=== PATIENT | female | born 1985 | race Caucasian/White ===

== ENCOUNTER 2021-05-05 08:43 | Outpatient (REF) | payer MEDICAID, SELFPAY ==
--- NOTE | ~2021-05-05 | CT_ITS ---
EXAMINATION: CT ABDOMEN AND PELVIS WITH CONTRAST CLINICAL INFORMATION: Left lower quadrant pain. COMPARISON: None TECHNIQUE: Multidetector volumetric images were obtained from the superior aspect of the liver through the pubic symphysis following administration 85 mL of Omnipaque 350 intravenous contrast. Sagittal and coronal reformatted images were obtained on the technologist's workstation. Oral Contrast: Yes. This CT examination was performed using dose optimization techniques as appropriate, variously including the following: *Automated exposure control. *Adjustment of mA and/or kV according to patient size (this includes techniques or standardized protocols for targeted exams where dose is matched to indication/reason for exam; i.e. extremities or head). *Use of iterative reconstruction technique. DLP: 558 mGy-cm FINDINGS: LUNG BASES: The visualized lung bases are unremarkable. LIVER, GALLBLADDER, AND BILIARY TREE: The liver is normal in size, shape, and attenuation. No focal hepatic lesion or biliary ductal dilatation is present. The gallbladder is unremarkable with no evidence of radiopaque gallstones, gallbladder wall thickening, or obvious pericholecystic inflammatory changes. PANCREAS: Unremarkable. SPLEEN: Unremarkable. ADRENAL GLANDS: Unremarkable. KIDNEYS AND URETERS: The kidneys are normal in size, shape, and attenuation. No hydronephrosis, hydroureter, or calculi seen. No perinephric stranding. BLADDER: Unremarkable. GASTROINTESTINAL TRACT: There is very mild diverticulosis of the colon. There is a round area of fatty infiltration anterior to the distal left or proximal sigmoid colon. Differential would include epiploic appendicitis and mild diverticulitis. This is seen on axial image 69 series 3, coronal reconstructed image 41 and sagittal reconstructed image 43. ABDOMINAL WALL: No significant hernia is appreciated. LYMPH NODES: Normal. VASCULAR: Unremarkable. PELVIC VISCERA: Unremarkable. OSSEOUS STRUCTURES: Unremarkable. CT/CT abdomen pelvis w con IMPRESSION: Mild diverticulosis of the colon. Mild inflammatory changes of the fat adjacent to the distal left or proximal sigmoid colon. Differential would include epiploic appendicitis and mild diverticulitis. Findings will be communicated by the [facility]. Fleischner guidelines were followed.
[2021-05-05] MEDS: iohexoL 350 MG/ML 100 ML INFUS..BTL IV (11:44)
[2021-05-05] MEDS: Barium Sulfate Oral (Vanilla) 450 ML ORAL.SUSP 900 ML PO (11:45)
== END 2021-05-05 08:44 | disposition home or self-care (01) ==
LOC: HO.CT 08:43
PROVIDERS: Visit Provider Emergency Medicine
DX: R10.32 Left lower quadrant pain (principal)
CPT/HCPCS: 74177; Q9967

== ENCOUNTER 2021-07-02 08:54 | Outpatient (REF) | payer MEDICAID, SELFPAY ==
--- NOTE | ~2021-07-02 | CT_ITS ---
EXAMINATION: CT ABDOMEN AND PELVIS WITHOUT CONTRAST CLINICAL INFORMATION: Disease of bowel unspecified. COMPARISON: CT abdomen/pelvis dated from 05/05/2021. TECHNIQUE: Multidetector volumetric imaging was performed from the superior aspect of the liver through the pubic symphysis. Sagittal and coronal reformatted images were obtained on the technologist's workstation. This CT examination was performed using dose optimization techniques as appropriate, variously including the following: *Automated exposure control *Adjustment of mA and/or kV according to patient size (this includes techniques or standardized protocols for targeted exams where dose is matched to indication/reason for exam; i.e. extremities or head) *Use of iterative reconstruction technique DLP: 593 mGy-cm FINDINGS: LUNG BASES: The visualized lung bases are unremarkable. LIVER, GALLBLADDER, AND BILIARY TREE: The non-contrast liver is normal in size, shape, and attenuation. No focal hepatic lesion or biliary ductal dilatation is present. The gallbladder is unremarkable with no evidence of radiopaque gallstones, gallbladder wall thickening, or obvious pericholecystic inflammatory changes. PANCREAS: Unremarkable. SPLEEN: Unremarkable. ADRENAL GLANDS: Unremarkable. KIDNEYS AND URETERS: The kidneys are normal in size, shape, and attenuation. No hydronephrosis, hydroureter, or calculi seen. No perinephric stranding. BLADDER: Unremarkable. GASTROINTESTINAL TRACT: The stomach and the small bowel are non-dilated. Normal appendix. There is redemonstration of sigmoid diverticulosis with questionable mild associated fat stranding (4:67 and 4:63). A previously described rounded structure inseparable from the wall of the sigmoid colon (3:62) measuring 0.8 cm is unchanged and likely represents a diverticulum filled with fluid or debris. No bowel obstruction. ABDOMINAL WALL: No significant hernia is appreciated. LYMPH NODES: No lymphadenopathy by size criteria. VASCULAR: Unremarkable. PELVIC VISCERA: Normal appearance of the uterus and adnexa. Trace amount of free fluid is likely physiologic. OSSEOUS STRUCTURES: No acute or aggressive-appearing osseous abnormalities. Thoracolumbar degenerative changes with redemonstration of vacuum disc phenomena at L5-S1. CT/CT abdomen pelvis wo con IMPRESSION: Sigmoid diverticulosis with very mild equivocal fat stranding. Correlate clinically for symptoms of acute diverticulitis. Otherwise, normal examination. It is important to note that the lack of intravenous contrast limits evaluation of the solid visceral organs. As well, the colon is underdistended limiting evaluation of mural abnormalities for which correlation with a colonoscopy could be obtained if indicated.
== END 2021-07-02 08:55 | disposition home or self-care (01) ==
LOC: HO.CT 08:54
PROVIDERS: Visit Provider Internal Medicine
DX: K63.9 Disease of intestine, unspecified (principal)
CPT/HCPCS: 74176

== ENCOUNTER → 2021-07-22 08:45 | Outpatient (BNVA) | payer MEDICAID, SELFPAY | PROVIDERS: PCP Internal Medicine; Referring Provider Internal Medicine; Visit Provider Nurse Practitioner Family | DX: R10.32 Left lower quadrant pain (principal); K57.92 Diverticulitis of intestine, part unspecified, without perforation or abscess without bleeding; E55.9 Vitamin D deficiency, unspecified | CPT/HCPCS: 99202 ==

== ENCOUNTER → 2021-08-24 09:28 | Outpatient (BNVA) | payer MEDICAID, SELFPAY | PROVIDERS: PCP Internal Medicine; Referring Provider Internal Medicine; Visit Provider Nurse Practitioner Family | DX: R10.32 Left lower quadrant pain (principal); K57.92 Diverticulitis of intestine, part unspecified, without perforation or abscess without bleeding | CPT/HCPCS: 99212 ==

== ENCOUNTER 2021-10-28 09:34 | Outpatient (REF) | payer MEDICAID, SELFPAY ==
[2021-10-28 10:52] LABS: C Reactive Protein 0.14 mg/dL (< or = 0.50)
[2021-10-28 11:06] LABS: TSH reflex Free T4 2.78 uIU/mL (0.32-4.0)
[2021-10-28 11:30] LABS: Folate > 20.0 ng/mL (> or = 4.0); Vitamin B12 311 pg/mL (200-900)
[2021-10-31 07:52] LABS: Transglutaminase Ab IgG <1.0 U/mL; Transglutaminase IgA <1.0 U/mL
[2021-11-04 15:42] LABS: Vitamin D 25-OH, D2 <4 ng/mL; Vitamin D 25-OH, D3 34 ng/mL; Vitamin D 25-OH, Total 34 ng/mL (30-100)
== END 2021-10-28 09:35 | disposition home or self-care (01) ==
LOC: HO.LAB 09:34
PROVIDERS: PCP Internal Medicine; Visit Provider Nurse Practitioner Family
DX: R10.11 Right upper quadrant pain (principal); R14.0 Abdominal distension (gaseous); R19.7 Diarrhea, unspecified; K58.9 Irritable bowel syndrome, unspecified; E55.9 Vitamin D deficiency, unspecified
CPT/HCPCS: 36415; 82306; 82607; 82746; 84443; 86140; 86364

== ENCOUNTER → 2021-11-18 09:16 | Outpatient (BNVA) | payer MEDICAID, SELFPAY | PROVIDERS: PCP Internal Medicine; Visit Provider Physician Assistant Surgical | DX: Z11.0 Encounter for screening for intestinal infectious diseases (principal) | CPT/HCPCS: 99211 ==

== ENCOUNTER 2021-11-18 09:37 | Outpatient (REF) | payer MEDICAID, SELFPAY ==
[2021-11-21 11:33] LABS: H Pylori Breath Test Negative (Negative)
== END 2021-11-18 09:38 | disposition home or self-care (01) ==
LOC: HO.LNP 09:37
PROVIDERS: Visit Provider Physician Assistant Surgical
DX: E66.9 Obesity, unspecified (principal)
CPT/HCPCS: 83013

== ENCOUNTER 2021-11-18 09:42 | Outpatient (REF) | payer MEDICAID, SELFPAY ==
--- NOTE | ~2021-11-18 | XR_ITS ---
EXAMINATION: XR CHEST CLINICAL INFORMATION: Obesity COMPARISON: None TECHNIQUE: 2 views of the chest were obtained. FINDINGS: No significant abnormality is noted involving the heart, lungs, mediastinum, bony thorax or soft tissues. XR/XR chest 2V IMPRESSION: Unremarkable examination.
[2021-11-18 10:07] LABS: MANUAL DIFF FLAG NO
[2021-11-18 10:36] LABS: Basophils Percent Auto 0.4 % (0-2); Eosinophils Absolute Auto 0.1 X10*3/uL (0.0-0.4); Eosinophils Percent Auto 1.1 % (0-4); Hematocrit 37.6 % (37.0-47.0); Hemoglobin 12.8 g/dl (12.0-16.0); Imm Gran Abs Auto 0.02 X10*3/uL (0.00-0.03); Imm Gran Pct Auto 0.3 % (0.0-0.4); Lymphocytes Absolute Auto 2.6 X10*3/uL (1.2-4.9); Lymphocytes Percent Auto 34.2 % (20-40); Mean Corpuscular Hemoglobin 29.4 pg (27.0-33.0); Mean Corpuscular Volume 86.4 fL (80.0-98.0); Monocytes Absolute Auto 0.5 X10*3/uL (0.1-1.2); Monocytes Percent Auto 6.2 % (2-11); Neutrophils Absolute Auto 4.4 x10*3/uL (2.0-8.3); Neutrophils Percent Auto 57.8 % (45-73); Platelet Count 392 X10*3/uL (160-400); Red Blood Count 4.35 X10*6/uL (4.20-5.50); Red Cell Distribution Width 12.5 % (11.0-16.0); White Blood Count 7.6 X10*3/uL (4.8-10.8)
[2021-11-18 10:51] LABS: Estimated Average Glucose 126 mg/dL
--- NOTE | 2021-11-18 11:03 | ECG_ITS ---
Test Reason : E66.01 Blood Pressure : / mmHG Vent. Rate : 084 BPM Atrial Rate : 084 BPM P-R Int : 160 ms QRS Dur : 088 ms QT Int : 360 ms P-R-T Axes : 015 034 021 degrees QTc Int : 425 ms Normal sinus rhythm Normal ECG No previous ECGs available Referred By: Benito Valentine Electronically Signed By:Ted Torres
[2021-11-18 11:14] LABS: Alanine Aminotransferase 17 U/L (0-31); Albumin Level 4.2 g/dL (3.5-5.0); Alkaline Phosphatase 76 U/L (39-117); Anion Gap 12 (12-20); Aspartate Amino Transferase 14 U/L (5-31); Bilirubin Total 0.4 mg/dL (0.0-1.0); Blood Urea Nitrogen 10 mg/dL (9-16); C Reactive Protein 0.15 mg/dL (< or = 0.50); Calcium 8.7 mg/dL (8.4-10.2); Carbon Dioxide 21 mmol/L (22-29); Chloride 108 mmol/L (96-108); Cholesterol 150 mg/dL; Estimated Glomerular Filt Rate > 60; Glucose Random 131 mg/dL (60-115); HDL Cholesterol 46 mg/dL; Iron 133 mcg/dL (30-160); LDL Cholesterol Calculated 68 mg/dl; Percent Iron Saturation 33 % (15-50); Potassium 4.4 mmol/L (3.3-5.1); Sodium 137 mmol/L (135-145); Total Iron Binding Capacity 401 mcg/dL (228-428); Triglycerides 183 mg/dL; Unsaturated Iron Binding 268 ug/dL
[2021-11-18 11:50] LABS: Folate 16.1 ng/mL (> or = 4.0); Vitamin B12 243 pg/mL (200-900)
[2021-11-18 11:56] LABS: Ferritin 35 ng/mL (10-122); TSH reflex Free T4 2.43 uIU/mL (0.32-4.0); Vitamin D 25-OH Total 33.8 ng/mL (>30)
[2021-11-18 14:17] LABS: Insulin 36 uU/mL (2-29)
[2021-11-19 13:47] LABS: Calcium (PTHI) 8.9 mg/dL (8.6-10.2); PTHI 92 pg/mL (16-77)
[2021-11-22 08:17] LABS: Vitamin B1 14 nmol/L (8-30)
[2021-11-23 16:26] LABS: Vitamin A 59 mcg/dL (38-98)
[2021-11-25 23:31] LABS: Zinc 72 mcg/dL (60-130)
== END 2021-11-18 09:43 | disposition home or self-care (01) ==
LOC: HO.XRAY 09:42
PROVIDERS: PCP Internal Medicine; Visit Provider Physician Assistant Surgical
DX: E66.9 Obesity, unspecified (principal)
CPT/HCPCS: 36415; 71046; 80053; 80061; 82306; 82607; 82728; 82746; 83013; 83036; 83525; 83540; 83970; 84425; 84443; 84590; 84630; 85025; 86140; 93005; 99211

== ENCOUNTER 2021-11-26 10:44 | Day surgery (SDC) | payer MEDICAID, SELFPAY ==
--- NOTE | 2021-11-25 09:27 | HO.ANESPROP2 ---
Documented by User: Radha Collado NP 11/25/21 09:30 HPI - Anesthesia Eval Consult details Narrative: 36yo F for Colonoscopy PMFSH Active Problems Active Problems: All Active Problems (Updated 11/17/21 @ 10:40 by MARISOL Beard) HTN (hypertension) (Acute) Diabetes (Acute) Obesity (BMI 30-39.9) (Acute) Past Medical History Medical History Diabetes HTN (hypertension) Obesity (BMI 30-39.9) Family History Family History Mother HTN (hypertension) Father Diverticulitis Diabetes Maternal Grandmother HTN (hypertension) Paternal Grandmother Diabetes Social History Social History Household Members: None Alcohol intake: never Patient Tobacco Use Status: Never used Tobacco Meds Allergies Allergy/AdvReac Type Severity Reaction Status Date / Time No Known Allergies Allergy Verified 08/24/21 09:29 Home Medications Medication Instructions Recorded Confirmed Last Taken Type blood sugar diagnostic (FreeStyle #10 ea 07/22/21 11/17/21 Unknown History Lite Strips) dulaglutide 0.75 mg/0.5 mL mg subcut QWEEK 07/22/21 11/17/21 Unknown History subcutaneous pen injector (Trulicity) hydroxyzine pamoate 25 mg capsule 25 mg PO BID PRN 07/22/21 11/17/21 Unknown History ibuprofen 400 mg tablet 400 mg PO Q4-6H PRN 07/22/21 11/17/21 Unknown History insulin glargine 100 unit/mL (3 28 unit subcut 07/22/21 11/17/21 Unknown History mL) subcutaneous pen (Lantus Solostar U-100 Insulin) lancets 28 gauge (FreeStyle #100 ea 07/22/21 11/17/21 Unknown History Lancets) pen needle, diabetic 31 gauge x #50 ea 07/22/21 11/17/21 Unknown History /16 (BD Ultra-Fine Mini Pen Needle) lisinopril 10 mg tablet 10 mg PO DAILY 11/17/21 11/17/21 Unknown History Exam Exam Date and Time: November 25, [id number] Pertinent Lab Results Pertinent Lab Results: Laboratory Tests 11/18/21 11/18/21 10:05 10:05 WBC 7.6 Hgb 12.8 Hct 37.6 Plt Count 392 Sodium 137 Potassium 4.4 Chloride 108 Carbon Dioxide 21 L BUN 10 Creatinine 0.72 Narrative Narrative: EKG 11/2021 Vent. Rate : 084 BPM ? ? Atrial Rate : 084 BPM ?? P-R Int : 160 ms? QRS Dur : 088 ms ? ? QT Int : 360 ms ? ? ? P-R-T Axes : 015 034 021 degrees ?? QTc Int : 425 ms ? Normal sinus rhythm Normal ECG No previous ECGs available Assessment and Plan Assessment Anesthesia Assessment: Chart Reviewed Documented by User: Ceci Carcamo MD 11/26/21 08:58 [facility] Past Medical History Medical History Diabetes HTN (hypertension) Obesity (BMI 30-39.9) Functional capacity: independent ambulation Patient : No Family History Family History Mother HTN (hypertension) Father Diverticulitis Diabetes Maternal Grandmother HTN (hypertension) Paternal Grandmother Diabetes Family history of problems with anesthesia: No Surgical History History of Problems with Anesthesia: No Social History Social History Household Members: None Alcohol intake: never Patient Tobacco Use Status: Never used Tobacco Meds Allergies Allergy/AdvReac Type Severity Reaction Status Date / Time No Known Allergies Allergy Verified 08/24/21 09:29 Home Medications Medication Instructions Recorded Confirmed Last Taken Type blood sugar diagnostic (FreeStyle #10 ea 07/22/21 11/17/21 Unknown History Lite Strips) dulaglutide 0.75 mg/0.5 mL mg subcut QWEEK 07/22/21 11/17/21 Unknown History subcutaneous pen injector (Trulicity) hydroxyzine pamoate 25 mg capsule 25 mg PO BID PRN 07/22/21 11/17/21 Unknown History ibuprofen 400 mg tablet 400 mg PO Q4-6H PRN 07/22/21 11/17/21 Unknown History insulin glargine 100 unit/mL (3 28 unit subcut 07/22/21 11/17/21 Unknown History mL) subcutaneous pen (Lantus Solostar U-100 Insulin) lancets 28 gauge (FreeStyle #100 ea 07/22/21 11/17/21 Unknown History Lancets) pen needle, diabetic 31 gauge x #50 ea 07/22/21 11/17/21 Unknown History 07/29 (BD Ultra-Fine Mini Pen Needle) lisinopril 10 mg tablet 10 mg PO DAILY 11/17/21 11/17/21 Unknown History Assessment and Plan Final Anesthetic Review Family History of Problems with Anesthesia: No History of Problems with Anesthesia: No
--- NOTE | 2021-11-26 10:36 | PC.NURSE ---
Patient arrival scheduled for 829, called x 2 when she did not appear. No answer on cell phone, left 2 messages, no response from patient
[2021-11-26 11:23] LABS: UPreg QC Valid YES; Urine Pregnancy NEGATIVE (NEGATIVE)
--- NOTE | 2021-11-26 11:25 | MHC.SHP ---
Pre-Procedural Eval Section A Date of Service: 11/26/21 Section B Chief Complaint: Diverticulitis of intestine, lower abdominal pain Relevant Family History (Specify if Yes): No Relevant Social History: None Present Medications: see Short Stay Collaborative assessment Medical History: Significant History (Diabetes HTN (hypertension) Obesity (BMI 30-39.9)) History of Previous Operations: No relevant previous surgery Allergies: Allergies Allergy/AdvReac Type Severity Reaction Status Date / Time No Known Allergies Allergy Verified 08/24/21 09:29 Review of Systems Sugical H&P ROS: Negative: Constitution, Cardiovascular, Respiratory, Neurological, Psychiatric, Hem-Onc, Allergic/Immunologic, Gastrointestinal, Genitourinary, Musculoskeletal, Integumentary, Endocrine and Eyes/Ears/Nose/Throat Exam Surgical H&P Exam: Normal: HEENT, Normal: Heart, Normal: Lungs, Normal: Extremities, Normal: Abdomen, Normal: Skin and Normal: Neurological Plan Diagnosis/Plan: Unchanged I have reviewed the history and physical and performed a pertinent physical examination on my patient. No changes have occurred unless specified.
--- NOTE | 2021-11-26 11:26 | W.PM.OPN ---
Operative Note Operative Note Date of Service: 11/26/21 Narrative: Operative Information Procedure Description: Colonoscopy Indication: hx of constipation and diverticulitis Anesthesia: MAC COLONOSCOPY Instrument: Olympus variable stiffness pediatric scope 190L Colonoscopy Monitoring: Vital signs and clinical assessment, continuous EKG monitoring, Pulse oximetry, Carbon Dioxide monitoring and blood pressure monitoring were done throughout the procedure. Colon withdrawal time was 10 minutes. Procedure: The patient was placed in the left lateral decubitis position and pre-procedure medications were administered. After a digital rectal examination of the ano-rectum, the video colonoscope was inserted into the rectum and advanced through the colon to the cecum/TI. The colonoscope was slowly withdrawn in a retrograde panoramic fashion and the colon mucosa was carefully examined including a retroflexed view of the rectum. Findings and interventions are described below. Procedure Difficulty: easy Findings: Terminal Ileum-normal, bx taken random colon bx taken Cecum:normal Ascending Colon: normal Transverse Colon -normal Descending Colon:normal Sigmoid Colon: small diverticula noted, mild to moderate Rectum: Retroflexion with small internal hemorrhoids, grade I, rectal biospies with jumbo cold forceps to r/o hirschsprungs Anorectum - normal Colon preparation: [place] Bowel Preparation Scale Right colon; 1-2 Transverse colon: 2 Left colon; 2 (0 = Unprepared colon segment with mucosa not seen due to solid stool that cannot be cleared. 1 = Portion of mucosa of the colon segment seen, but other areas of the colon segment not well seen due to staining, residual stool and/or opaque liquid. 2 = Minor amount of residual staining, small fragments of stool and/or opaque liquid, but mucosa of colon segment seen well. 3 = Entire mucosa of colon segment seen well with no residual staining, small fragments of stool or opaque liquid) Impression and Post Procedure Diagnosis: diverticulosis internal hemorrhoids Plan: High fiber diet leaflet Avoid straining at stool, epsom salts and sitz bath, anusol supps or cream Repeat Colonoscopy in 5 years due to borderline prep of right colon or earlier if clinically indicated if bx neg then recommend MR defecography to exclude pelvic floor dysfucntion or other anatomical issues causing her sx Above findings were reviewed with the patient and relevant handouts were provided if indicated.
[2021-11-26 11:39] VITALS: BMI 35.5
[2021-11-26 11:44] VITALS: BP 143/88; PULSE 102; RESP 16; TEMP 36.9; O2SAT 97
[2021-11-26 11:44] LABS: Glucose, Whole Blood 118 mg/dL (60-115)
[2021-11-26] MEDS: Lactated Ringers 1,000 ML 100 ML IVCONT (11:47)
[2021-11-26 12:42] VITALS: BP 121/71; PULSE 87; RESP 16; TEMP 36.9; O2SAT 98
[2021-11-26 12:57] VITALS: BP 134/73; PULSE 85; RESP 16; O2SAT 98
[2021-11-26 13:12] VITALS: BP 127/73; PULSE 91; RESP 18; TEMP 37.2; O2SAT 98
== END 2021-11-26 13:48 | disposition home or self-care (01) ==
PROVIDERS: Nurse Practitioner; PCP Internal Medicine; Visit Provider Internal Medicine Gastroenterology
PROC: 0DJD8ZZ Inspection of Lower Intestinal Tract, Via Natural or Artificial Opening Endoscopic (ICD-10-PCS; CPT 45378; principal; 2021-11-26 09:30)
DX: Z12.11 Encounter for screening for malignant neoplasm of colon (principal); Z87.19 Personal history of other diseases of the digestive system; K57.30 Diverticulosis of large intestine without perforation or abscess without bleeding; K64.0 First degree hemorrhoids; K59.00 Constipation, unspecified; E66.9 Obesity, unspecified; Z68.33 Body mass index [BMI] 33.0-33.9, adult; I10 Essential (primary) hypertension; E11.9 Type 2 diabetes mellitus without complications; Z79.4 Long term (current) use of insulin; Z79.899 Other long term (current) drug therapy
CPT/HCPCS: 45380; 81025; 82947; 88305; 88342

== ENCOUNTER → 2021-12-09 08:20 | Outpatient (BNVA) | payer MEDICAID, SELFPAY | PROVIDERS: PCP Internal Medicine; Visit Provider Nurse Practitioner Family | DX: K57.90 Diverticulosis of intestine, part unspecified, without perforation or abscess without bleeding (principal) | CPT/HCPCS: 99212 ==

== ENCOUNTER → 2022-08-18 10:02 | Outpatient (BNVA) | payer MEDICAID, SELFPAY | PROVIDERS: PCP Internal Medicine; Visit Provider Nurse Practitioner Family | DX: K57.90 Diverticulosis of intestine, part unspecified, without perforation or abscess without bleeding (principal); R14.0 Abdominal distension (gaseous); R10.12 Left upper quadrant pain; E66.9 Obesity, unspecified; Z68.38 Body mass index [BMI] 38.0-38.9, adult | CPT/HCPCS: 99212 ==

== ENCOUNTER 2023-08-26 08:56 | Outpatient (REF) | payer MEDICAID, SELFPAY ==
[2023-08-26 15:04] LABS: Estimated Average Glucose 134 mg/dL; Hemoglobin A1C 150.1968 umol/L; Hemoglobin A1c % 6.3 % (<6.0)
[2023-08-26 15:05] LABS: Alanine Aminotransferase 21 U/L (0-31); Albumin Level 4.3 g/dL (3.5-5.0); Alkaline Phosphatase 70 U/L (39-117); Anion Gap 12 (12-20); Aspartate Amino Transferase 15 U/L (5-31); Bilirubin Total 0.3 mg/dL (0.0-1.0); Blood Urea Nitrogen 8 mg/dL (9-16); Calcium 9.3 mg/dL (8.4-10.2); Carbon Dioxide 23 mmol/L (22-29); Chloride 109 mmol/L (96-108); Cholesterol 131 mg/dL (<200); Estimated Glomerular Filt Rate > 60; Glucose Fasting 82 mg/dL (60-99); HDL Cholesterol 44 mg/dL (>40); LDL Cholesterol Calculated 68 mg/dL (<100); Potassium 3.9 mmol/L (3.3-5.1); Sodium 140 mmol/L (135-145); Total Protein 7.3 g/dL (6.5-8.0); Triglycerides 97 mg/dL (<150)
[2023-08-26 15:36] LABS: Creatinine Urine 176.66 mg/dL; Microalbum/Creatinine Ratio Ur 3.3 ug/mg cr (<30)
== END 2023-08-26 08:57 | disposition home or self-care (01) ==
LOC: HO.CHCLDS 08:56
PROVIDERS: Visit Provider Internal Medicine
DX: E11.9 Type 2 diabetes mellitus without complications (principal); Z79.4 Long term (current) use of insulin
CPT/HCPCS: 36415; 80053; 80061; 82043; 82570; 83036

== ENCOUNTER 2023-12-05 08:17 | Emergency (ER) | payer MEDICARE, MEDICAID, SELFPAY ==
--- NOTE | ~2023-12-05 | CT_ITS ---
EXAMINATION: CT CERVICAL SPINE WITHOUT CONTRAST CLINICAL INFORMATION: Fall 5 days ago COMPARISON: None available. TECHNIQUE: Axial imaging was performed through the cervical spine. Reformatted coronal and sagittal images are provided for interpretation. This CT examination was performed using dose optimization techniques as appropriate, variously including the following: *Automated exposure control *Adjustment of mA and/or kV according to patient size (this includes techniques or standardized protocols for targeted exams where dose is matched to indication/reason for exam; i.e. extremities or head) *Use of iterative reconstruction technique DLP: 438 mGy-cm FINDINGS: The cervical spine is visualized in its entirety. There is reversal of the normal cervical lordosis. Alignment is otherwise unremarkable. Normal C1/C2 articulation. Cervical vertebral body heights are maintained. Cervical disc spaces are maintained diffusely. A few tiny osteophytes are noted within the mid to lower cervical spine. A few left side thyroid nodules are visualized, largest measuring approximately 1 cm. Visualized lung apices are well aerated. CT/CT cervical spine wo IV con IMPRESSION: 1. Minimal degenerative changes of the cervical spine. No compression deformity. 2. A few left-sided thyroid nodules are visualized, largest measuring approximately 1 cm. These may be further evaluated with dedicated thyroid ultrasound as clinically indicated. Fleischner guidelines were followed.
[2023-12-05 08:21] VITALS: BP 150/84; PULSE 93; RESP 18; TEMP 36.6; O2SAT 99; BMI 32.4
--- NOTE | 2023-12-05 08:41 | ED_ITS ---
HPI - Neck Pain/Injury General Chief Complaint: Neck Pain/Injury Stated Complaint: Neck pain Time Seen by Provider: 12/05/23 08:35 Source: patient Mode of arrival: ambulatory History of Present Illness HPI Narrative: This is a 38 years old the patient presented ambulatory to the emergency department with a chief complaint of neck pain. Pain is localized in the right lateral neck. She had an injury 5 days ago, she fell denies any head injury denies any chest wall pain denies any abdominal pain. She is on Ozempic she is wondering if he could be a side effect by she has been on this medication more than 1 year MD complaint: neck pain and neck injury Onset (ago): day(s) (5) Place: home Radiation: right lateral Severity: moderate Duration: constant Exacerbating factors: none Context: fall Associated symptoms: none Related Data Home Medications ?Medication ?Instructions ?Recorded ?Confirmed blood sugar diagnostic (JsuStyle #10 ea 07/22/21 11/17/21 Lite Strips) dulaglutide 0.75 mg/0.5 mL mg subcut QWEEK 07/22/21 11/17/21 subcutaneous pen injector (Trulicity) hydroxyzine pamoate 25 mg capsule 25 mg PO BID PRN 07/22/21 11/17/21 ibuprofen 400 mg tablet 400 mg PO Q4-6H PRN 07/22/21 11/17/21 insulin glargine 100 unit/mL (3 28 unit subcut 07/22/21 11/17/21 mL) subcutaneous pen (Lantus Solostar U-100 Insulin) lancets 28 gauge (FreeStyle #100 ea 07/22/21 11/17/21 Lancets) pen needle, diabetic 31 gauge x #50 ea 07/22/21 11/17/21 3/16 (BD Ultra-Fine Mini Pen Needle) lisinopril 10 mg tablet 10 mg PO DAILY 11/17/21 11/17/21 paroxetine HCl 30 mg tablet 30 mg PO QAM 08/18/22 Previous Rx's ?Medication ?Instructions ?Recorded polyethylene glycol 3350 17 17 g PO DAILY #510 grams 12/09/21 gram/dose oral powder (Miralax) docusate sodium 100 mg capsule 100 mg PO BEDTIME #30 caps 07/22/23 sennosides 8.6 mg tablet (Natural 8.6 mg PO BEDTIME constipation #30 07/22/23 Senna Laxative) tabs cyclobenzaprine 10 mg tablet 10 mg PO TID PRN spasm #10 tabs 12/05/23 Allergies Allergy/AdvReac Type Severity Reaction Status Date / Time No Known Allergies Allergy Verified 12/05/23 08:25 Review of Systems Constitutional: Constitutional: Reports no additional constitutional complaints ENT: Reports system reviewed and no additional complaints, except as documented Cardiovascular: Cardiovascular: Reports no additional cardiovascular complaints [facility] Past Medical History Medical History Diabetes Diverticulosis HTN (hypertension) Obesity (BMI 30-39.9) Family History Family History Mother HTN (hypertension) Father Diverticulitis Diabetes Maternal Grandmother HTN (hypertension) Paternal Grandmother Diabetes Social History Social History Household Members: None Alcohol intake: never Patient Tobacco Use Status: Never used Tobacco Advance Directives: No Advance Directives Information Provided: No Do you have a plan to hurt others: No Plan Physical Exam Vital Signs: Vital Signs: Last Vital Signs Temp 97.8 F 12/05/23 10:00 Pulse 81 12/05/23 10:00 Resp 17 12/05/23 10:00 BP 139/81 12/05/23 10:00 Pulse Ox 100 12/05/23 10:00 O2 Del Method Room Air 12/05/23 10:00 BMI result Body Mass Index 32.4 Const: General: cooperative and healthy appearing Nutritional Appearance: well nourished Orientation/consciousness: patient oriented x3 Limitations: no limitations HEENT: Head: Yes normal to inspection Ears: hearing grossly normal bilaterally General nose exam: Normal external nose present Face and sinus: Yes normal facial exam Mouth: Normal oral and palatal mucosa present Neck: Other: Tenderness in the posterolateral aspect of the knee Chest: Chest palpation & inspection: normal inspection of the chest Resp: Effort & Inspection: normal respiratory effort Auscultation: clear to auscultation bilaterally Cardio: Jugular venous distension: no JVD Rate: regular rate Rhythm: regular rhythm GI: Inspection: Yes normal to inspection Palpation (GI): Soft to palpation Skin: General skin exam: no rashes or lesions noted Lesions: no lesions Rashes: no rashes Neuro: General: patient oriented x3 Cranial nerves: Yes CN's II-XII intact bilaterally Course Reevaluation(s) Reevaluation #1: CT C-spine negative for fracture she does have thyroid nodule this was disclosed to the patient a copy of the CT was given to her she will follow-up with the primary care physician Time: 11:17 Medical Decision Making Medical Decision Making MDM Narrative: Patient presented with neck pain she fell about 5 days ago will obtain imaging Differential Diagnosis Differential Diagnoses: The differential diagnosis associated with the presentation includes Cervical spines fracture/sprain Independent Interpretation I performed an independent interpretation of an: CT Scan Interpretation: no fx Radiology Impression Discussion of test interpretation with radiology: I have reviewed the radiologist's reading. Radiologist Impression: no fx thyroid nodules Discharge Plan Discharge Clinical Impression: Neck pain Patient Disposition: Home, Self-Care Instructions: Acute Neck Pain (ED) Additional Instructions: Follow-up with your primary care physician please, CT scan showed that he you of few thyroid nodule you may need an outpatient ultrasound but talk to your primary care physician about, I gave you a copy of the CT report Prescriptions: New cyclobenzaprine 10 mg tablet 10 mg PO TID PRN (Reason: spasm) Qty: 10 0RF No Action docusate sodium 100 mg capsule 100 mg PO BEDTIME Qty: 30 3RF sennosides [Natural Senna Laxative] 8.6 mg tablet 8.6 mg PO BEDTIME Qty: 30 3RF hydroxyzine pamoate 25 mg capsule 25 mg PO BID PRN (DME) pen needle, diabetic [BD Ultra-Fine Mini Pen Needle] 31 gauge x 3/16 ne edle See Rx Instructions subcut DAILY Qty: 50 Rx Instructions: As directed Trulicity 0.75 mg/0.5 mL pen injector subcut QWEEK (DME) lancets [FreeStyle Lancets] 28 gauge misc See Rx Instructions topical TID Qty: 100 Rx Instructions: As directed (DME) FreeStyle Lite Strips Strip See Rx Instructions Not Applicable TID Qty: 10 Rx Instructions: As directed ibuprofen 400 mg tablet 400 mg PO Q4-6H PRN Lantus Solostar U-100 Insulin 100 unit/mL (3 mL) insulin pen 28 unit subcut polyethylene glycol 3350 [Miralax] 17 gram/dose powder 17 g PO DAILY Qty: 510 2RF lisinopril 10 mg tablet 10 mg PO DAILY paroxetine HCl 30 mg tablet 30 mg PO QAM Referrals: Lai Farnks MD [Primary Care Provider] - 2 days Print Language: Occitan
[2023-12-05 10:00] VITALS: BP 139/81; PULSE 81; RESP 17; TEMP 36.6; O2SAT 100
[2023-12-05 11:50] VITALS: BP 139/81; PULSE 81; RESP 17; TEMP 36.6; O2SAT 100
== END 2023-12-05 11:51 | disposition home or self-care (01) ==
PROVIDERS: Emergency Provider Emergency Medicine; PCP Internal Medicine
DX: M54.2 Cervicalgia (principal); Z79.899 Other long term (current) drug therapy
CPT/HCPCS: 72125; 99283; 99284

== ENCOUNTER 2025-02-05 09:15 | Outpatient (REF) | payer MEDICARE, MEDICAID, SELFPAY ==
--- OUTSIDE RECORDS SUMMARY | 2025-02-05 08:30 | XMS_ITS | Encounter Summary ---
Author Organization [employer] Address [address] [facility] 7[address] [place] [address] Care Team Providers Care Immigration Patrol Inspector Name Role Phone Lai Franks MD Primary Care Prov ider Reason for Referral * Imaging (Routine) - Authorized Specialty Diagnoses / Procedures Referred By Contac t Referred To Contact Radiology Diagnoses Type 2 diabetes mellitus without complication, with long-term current use of insulin ([facility]) Procedures BI Mammogram Screening Tomosynthesis Bilateral Lai Franks MD [address] [place] [address] Phone: tel: fax: [address] Phone: tel: fax: Referral ID Status Reason Start Date Expiration Date V isits Requested Visits Authorized [id number] Authorized 02/05/2025 02/05/2026 1 1 Encounter Details Date Type Department Care Team (Late st Contact Info) Description 02/05/2025 8:30 AM EDT Office Visit [facility] MED & PEDS [address] [place], [place] [phone] Lai Franks MD [address] [place] [address] Primary hypertension (Primary Dx); Type 2 diabetes mellitus without complication, with long-term current use of insulin ([facility]) Social History Tobacco Use Types Packs/Day Years Used Date Smoking Tobacco: Never Passive Smoke Exposure: Never Smokeless Tobacco: Never Alcohol Use Standard Drinks/Week Comments Yes 1 (1 standard drink = 0.6 oz pur e alcohol) Depression Answer Date Recorded Patient Health Questionnaire-9 Score 0 05/02/2024 Patient Health Questionnaire-9 Score 0 05/02/2024 Last PHQ-9: Questionnaire Data Not on file 1 07/03/2023 Housing Stability Answer Date Recorded What is your housing situation today? I have danika palacios 01/29/[address] you li ve. Do you have problems with any of the following? None of the above 01/29/2025 Food Insecurity Answer Date Recorded Within the past 12 months, y ou worried that your food would run out before you got money to buy more: Never True 01/29/2025 Within the past 12 months,th e food you bought just didn't last and you didn't have enough money to get more: Never True Transportation Answer Date Recorded In the past 12 months, has l ack of transportation kept you from medical appts, meetings, work or from getting things needed for daily living? No 01/29/2025 Utilities Answer Date Recorded In the past 12 months, has t he electric, gas, oil or water company threatened to shut off services in your home? No 01/29/2025 Depression Answer Date Recorded Patient Health Questionnaire-2 Score 0 05/02/2024 Internet Access Answer Date Recorded Internet Access Q1 Yes 01/29/2025 Internet Access Q2 Not on file 01/29/2025 Comments Unknown Sex and Gender Information Value Date Recorded Sex Assigned at Female 03/15/2022 10:18 AM EDT Legal Sex Female 10:18 AM EDT Gender Identity Female 03/15/2022 10:18 AM EDT Sexual Orientation Straight 03/15/2022 10 :18 AM EDT documented as of this encounter Last Filed Vital Signs Vital Sign Reading Time Taken Comments Blood Pressure 132/80 02/05/2025 8:55 AM EDT Pulse 88 02/05/2025 8:55 AM EDT Temperature 36.9 C (98.4 F) 02/05/2025 8:55 AM EDT Respiratory Rate 20 02/05/2025 8:55 AM EDT Oxygen Saturation - - Inhaled Oxygen Concentration - - Weight 69.7 kg (153 lb 9.6 oz) 02/05/2025 8:55 A M EDT Height 162.6 cm (5' 4 ) 02/05/2025 8:55 AM EDT Body Mass Index 26.37 02/05/2025 8:55 AM EDT documented in this encounter Progress Notes * Lai Delaney MD - 02/05/2025 8:30 AM EDT Subjective Patient ID: Veronika Lopez is a 39 y.o. female who presents for No chief complaint on file.. Hypertension This is a chronic problem. The problem is controlled. Pertinent negatives include no chest pain, headaches, palpitations or shortness of breath. Diabetes She presents for her follow-up diabetic visit. She has type 2 diabetes mellitus. Her disease coursehas been stable. Pertinent negatives for hypoglycemia include no headaches. Pertinent negatives fordiabetes include no chest pain, no foot ulcerations, no polydipsia, no polyphagia and no polyuria. Review of Systems Respiratory: Negative for shortness of breath. Cardiovascular: Negative for chest pain and palpitations. Endocrine: Negative for polydipsia, polyphagia and polyuria. Neurological: Negative for headaches. Objective Physical Exam Constitutional: Appearance: Normal appearance. Cardiovascular: Rate and Rhythm: Normal rate. Pulses: Dorsalis pedis pulses are 2+ on the right side and 2+ on the left side. Posterior tibial pulses are 2+ on the right side and 2+ on the left side. Heart sounds: No murmur heard. Abdominal: General: Abdomen is flat. Palpations: Abdomen is soft. Musculoskeletal: Right foot: Normal range of motion. No deformity, bunion, Charcot foot, foot drop or prominent metatarsal heads. Left foot: Normal range of motion. No deformity, bunion, Charcot foot, foot drop or prominent metatarsal heads. Feet: Right foot: Protective Sensation: 7 sites tested. 7 sites sensed. Skin integrity: No ulcer, blister or callus. Toenail Condition: Fungal disease present. Left foot: Protective Sensation: 7 sites tested. 7 sites sensed. Skin integrity: No ulcer, blister or callus. Toenail Condition: Fungal disease present. Neurological: General: No focal deficit present. Mental Status: She is alert and oriented to person, place, and time. Psychiatric: Mood and Affect: Mood normal. Behavior: Behavior normal. Assessment/Plan Problem List Items Addressed This Visit Type 2 diabetes mellitus without complication, with long-term current use of insulin (CMS/HCC) Controlled, will stop insulin, continue ozempic, continue low carb/no sugar diet, exercise as tolerated Relevant Orders POCT Glucose (Completed) POCT Hgb A1c (Completed) CBC auto differential Comprehensive Metabolic Panel Lipid Panel, Standard Albumin, Random Urine W/Creatinine Hepatitis C Antibody with Reflex to HCV, RNA, Quantitative, Real-Time PCR BI Mammogram Screening Tomosynthesis Bilateral Primary hypertension - Primary Controlled, keep low sodium diet and exercise as tolerated, keep blood pressure log target <130/80 documented in this encounter Miscellaneous Notes * Assessment & Plan Note - Lai Delaney MD - 02/05/2025 9:11 AM EDTAssociated Problem(s): Type 2 diabetes mellitus without complication, with long-term current use ofinsulin (CMS/HCC) Controlled, will stop insulin, continue ozempic, continue low carb/no sugar diet, exercise as tolerated * Assessment & Plan Note - Lai Delaney MD - 02/05/2025 9:11 AM EDTAssociated Problem(s): Primary hypertension Controlled, keep low sodium diet and exercise as tolerated, keep blood pressure log target <130/80 documented in this encounter Plan of Treatment Scheduled Orders Name Type Priority Associated Diagnoses Orde r Schedule CBC auto differential Lab Routine Type 2 diabetes mellitus without complication, with long-term current use of insulin (CMS/HCC) Expected: 02/05/2025 (Approximate), Expires: 02/05/2026 Comprehensive Metabolic Panel Lab Routine Type 2 diabetes mellitus without complication, with long-term current use of insulin ([facility]) Expected: 02/05/2025 (Approximate), Expires: 02/05/2026 Lipid Panel, Standard Lab Routine Type 2 diabetes mellitus without complication, with long-term current use of insulin (CMS/HCC) Expected: 02/05/2025 (Approximate), Expires: 02/05/2026 Albumin, Random Urine W/Creatinine Lab Routine Type 2 diabetes mellitus without complication, with long-term current use of insulin ([facility]) Expected: 02/05/2025 (Approximate), Expires: 02/05/2026 Hepatitis C Antibody with Reflex to HCV, RNA, Quantitative, Real-Time PCR Lab Routine Type 2 diabetes mellitus without complication, with long-term current use of insulin ([facility]) Expected: 02/05/2025, Expires: 02/05/2026 BI Mammogram Screening Tomosynthesis Bilateral Imaging Routine Type 2 diabetes mellitus without complication, with long-term current use of insulin ([facility]) Expected: 02/05/2025, Expires: 04/07/2026 documented as of this encounter Procedures Procedure Name Priority Date/Time Associated Diagnosis Comments POCT GLYCATED HEMOGLOBIN, TOTAL Routine 02/05/2025 8:57 AM EDT Type 2 diabetes mellitus without complication, with long-term current use of insulin ([facility]) POCT GLUCOSE Routine 02/05/2025 8:56 AM EDT Type 2 diabetes mellitus without complication, with long-term current use of insulin ([facility]) documented in this encounter Results * POCT Hgb A1c (02/05/2025 8:57 AM EDT) Pathologist [facility] Hemoglobin A1C 5.4 4.0 - 5.7 % QC Media Lot # [id number] Lot# Expiration Date ,566,069 Blood 02/05/2025 8:57 AM EDT Lai Delaney MD POINT OF CARE TEST ENTER/EDIT ORDERABLES Final Result * POCT Glucose (02/05/2025 8:56 AM EDT) Glucose Blood, POC 104 60 - 200 mg/dL QC Media Lot # [id number] Lot# Expiration Date Blood Capillary blood specimen / Unknown 02/05/2025 8:56 AM EDT Lai Delaney MD POINT OF CARE TEST ENTER/EDIT ORDERABLES Final Result documented in this encounter Visit Diagnoses Diagnosis Primary hypertension- Primary Unspecified essential hypertension Type 2 diabetes mellitus without complication, with long-term current use of insulin ([facility]) documented in this encounter Additional Health Concerns Assessment Noted Time PHQ-9 Depression Total Score: 0 05/02/20 24 11:14 AM EST documented as of this encounter Care Teams Immigration Patrol Inspector Relationship Specialty Start Date End Date Lai Franks MD [address] [place] [address] PCP - General Internal Medicine 10/10/19 documented as of this encounter
--- OUTSIDE RECORDS SUMMARY | 2025-02-05 10:52 | XMS_ITS | Encounter Summary ---
Author Organization [employer] Address [address] [facility] [address] [place] [address] Care Team Providers Care Research Program Assistant Name Role Phone Lai Franks MD Primary Care Prov ider Reason for Visit * Reason Onset Date Comments chart prep 02/01/2025 Encounter Details Date Type Department Care Team ([facility] st Contact Info) Description 02/01/2025 Telephone [facility] MED & PEDS [address] [place], [place] [phone] Lai Franks MD [address] [place], [place] [phone] chart prep Social History Tobacco Use Types Packs/Day Years [...] your housing situation today? I have danika suzanne 01/29/[address] you li [...] AM EDT documented as of this encounter Miscellaneous Notes * Telephone Encounter - Marly Pimentel [place] - 02/01/2025 2:45 PM EDT Chart Prep Labs: done Images: done Referrals: not applicable Vaccines due: Covid, Flu, PCV20, Tdap, and Hep B Screenings: mammogram, foot, eye Overdue care gaps: A1c, Glucose, SBIRT, and Disability screen documented in this encounter Plan of Treatment Not on file documented as of this encounter Visit Diagnoses Not on filedocumented in this encounter Additional Health Concerns Assessment Noted Time PHQ-9 Depression Total Score: 0 05/02/20 24 11:14 AM EST documented as of this encounter Care Teams Research Program Assistant Relationship Specialty Start Date End Date Lai Franks MD [address] [place], [place] [address] [address] PCP - General Internal Medicine 10/10/19 documented as of this encounter
--- OUTSIDE RECORDS SUMMARY | 2025-02-05 10:52 | XMS_ITS | Encounter Summary ---
Author Organization [employer] Address [address] [facility] [address] [place] [address] Care Team Providers Care Livestock Slaughterer Name Role Phone Lai Franks MD Primary Care Prov ider Reason for Visit * Reason Comments Med Change Request Encounter Details Date Type Department Care Team ([facility] st Contact Info) Description 12/23/2023 Refill [facility] MEDICINE [address] [place] [address] Beatriz Roman MD [address] [place] [address] Social History Tobacco Use Types Packs/Day Years Used Date Smoking Tobacco: Never Passive Smoke Exposure: Never Smokeless Tobacco: Never Alcohol Use Standard Drinks/Week Comments Yes 1 (1 standard drink = 0.6 oz pur e alcohol) Depression Answer Date Recorded Patient Health Questionnaire-9 Score 06/14/2023 Patient Health Questionnaire-9 Score 19 06/14/2023 Last PHQ-9: Questionnaire Data Not on file 0 06/14/2023 Housing Stability Answer Date Recorded What is your housing situation today? I have danika palacios 03/01/[address] you li ve. Do you have problems with any of the following? None of the above 03/01/2023 Food Insecurity Answer Date Recorded Within the past 12 months, y ou worried that your food would run out before you got money to buy more: Never True 03/01/2023 Within the past 12 months,th e food you bought just didn't last and you didn't have enough money to get more: Never True Transportation Answer Date Recorded In the past 12 months, has l ack of transportation kept you from medical appts, meetings, work or from getting things needed for daily living? No 03/01/2023 Utilities Answer Date Recorded In the past 12 months, has t he electric, gas, oil or water company threatened to shut off services in your home? No 03/01/2023 Depression Answer Date Recorded Patient Health Questionnaire-2 Score 6 06/14/2023 Comments Unknown Sex and Gender Information Value Date Recorded Sex Assigned at Female 03/15/2022 10:18 AM EDT Legal Sex Female 10:18 AM EDT Gender Identity Female 03/15/2022 10:18 AM EDT Sexual Orientation Straight 03/15/2022 10 :18 AM EDT documented as of this encounter Plan of Treatment Not on file documented as of this encounter Visit Diagnoses Not on filedocumented in this encounter Additional Health Concerns Assessment Noted Time PHQ-9 Depression Total Score: 19 024 2:06 PM EST documented as of this encounter Care Teams Livestock Slaughterer Relationship Specialty Start Date End Date Lai Franks MD [address] [place] [id number] PCP - General Internal Medicine 10/10/19 documented as of this encounter
--- OUTSIDE RECORDS SUMMARY | 2025-02-05 10:52 | XMS_ITS | Encounter Summary ---
Author Organization [employer] Address [address] [facility] 7t [place] [address] Care Team Providers Care Testing Specialist Name Role Phone Lai Franks MD Primary Care Prov ider Encounter Details Date Type Department Care Team ([facility] st Contact Info) Description 12/22/2023 Orders Only [facility] CHC MED & PEDS [address] [place], [place] [phone] Lai Franks MD [address] [place], [place] [phone] Social History Tobacco Use Types Packs/Day Years Used Date Smoking Tobacco: Never Passive Smoke Exposure: Never Smokeless Tobacco: Never Alcohol Use Standard Drinks/Week Comments Yes 1 (1 standard drink = 0.6 oz pur e alcohol) Depression Answer Date Recorded Patient Health Questionnaire-9 Score 19 06/14/2023 Patient Health Questionnaire-9 Score 19 06/14/2023 [...] documented as of this encounter Care Teams Testing Specialist Relationship Specialty Start Date End Date Lai Franks MD [address] [place] [address] PCP - General Internal Medicine 10/10/19 documented as of this encounter
--- OUTSIDE RECORDS SUMMARY | 2025-02-05 10:52 | XMS_ITS | Encounter Summary ---
Author Organization [employer] Address [address] [facility] 7t [place] [address] Care Team Providers Care Shop Tech Name Role Phone Lai Franks MD Primary Care Prov ider Encounter Details Date Type Department Care Team ([facility] st Contact Info) Description 10/31/2024 Orders Only [facility] CHC MED & PEDS [address] [place], [place] [phone] Lai Franks MD [address] [place], [place] [phone] Social History Tobacco Use Types Packs/Day Years [...] Recorded Patient Health Questionnaire-2 Score 0 05/02/2024 Comments Unknown Sex and Gender Information Value [...] documented as of this encounter Care Teams Shop Tech Relationship Specialty Start Date End Date Lai Franks MD [address] [place] [id number] PCP - General Internal Medicine 10/10/19 documented as of this encounter
--- OUTSIDE RECORDS SUMMARY | 2025-02-05 10:52 | XMS_ITS | Encounter Summary ---
Author Organization [employer] Address [address] [facility] 7t [place] [address] Care Team Providers Care Corporate Human Resources Manager Name Role Phone Lai Franks MD Primary Care Prov ider Reason for Visit * Reason Onset Date Comments ER Follow-up 12/05/2023 Encounter Details Date Type Department Care Team (Late st Contact Info) Description 12/05/2023 Telephone [facility] MEDICINE [address] [place] [address] Lai Franks MD [address] [place], [place] [phone] ER Follow-up Social History Tobacco Use Types Packs/Day Years [...] encounter Miscellaneous Notes * Telephone Encounter - Wing Moraima RN - 12/07/2023 3:46 PM EDT Tc to pt for ED follow-up. Unable to reach pt, left message for pt to call back. * Telephone Encounter - Jose Pimentel - 12/05/2023 1:57 PM EDT Patient calling to report ED visit on : Date: 12/04 Hospital: [facility] Seen for: Neck Pain had CT scan and had found thyroid nodule Patient advised will forward to team nurse for follow up documented in this encounter Plan of Treatment Not on file documented as of this encounter Visit Diagnoses Not on filedocumented in this encounter Additional Health Concerns Assessment Noted Time PHQ-9 Depression Total Score: 19 024 2:06 PM EST documented as of this encounter Care Teams Corporate Human Resources Manager Relationship Specialty Start Date End Date Lai Franks MD [address] [place] [address] PCP - General Internal Medicine 10/10/19 documented as of this encounter
--- OUTSIDE RECORDS SUMMARY | 2025-02-05 10:52 | XMS_ITS | Clinical Summary ---
Author Organization [employer] Address [address] [facility] [address] [place] [address] Care Team Providers Care Recreation Coordinator Name Role Phone Lai Franks MD Primary Care Prov ider Allergies No known active allergies Medications * This document contains information received from the source organization and may not represent a complete record from that organization. clotrimazole (Lotrimin) 1 % vaginal cream 1 applicator qhs prn vagina for 7 nights. 05/06/20 21 Active hydrocortison e 2.5 % cream Apply topically every 12 (twelve) hours. 03/18/20 21 Active ibuprofen 400 MG tablet Take 1 tablet by mouth. 06/25/19 22 Active FreeStyle lancetsIndica tions:Type 2 diabetes mellitus without complication, with long-term current use of insulin ([facility]) 1 each by Other route 3 times daily. Use as instructed 100 each 11 06/22/19 23 Active hydrOXYzine pamoate (Vistaril) 25 MG capsule TAKE 1 CAPSULE (25 MG) BY MOUTH EVERY 6 (SIX) HOURS IF NEEDED FOR ITCHING. 360 capsule 1 11/18/19 24 Active omeprazole (PriLOSEC) [address] capsule TAKE 1 CAPSULE BY MOUTH EVERY DAY 90 capsule 1 03/26/20 24 Active losartan (Cozaar) 50 MG tablet Take 1 tablet (50 mg) by mouth in the morning. 90 tablet 3 05/02/20 24 2024 Active FREESTYLE LITE test stripIndicati ons:Type 2 diabetes mellitus without complication, with long-term current use of insulin (CMS/[facility]) USE TO TEST 3 TIMES DAILY 100 strip 3 05/14/20 24 Active cyclobenzapri ne (Flexeril) 10 MG tablet TAKE 1 TABLET BY MOUTH NEEDED IN THE MORNING AT NOON AT BEDTIME FOR MUSCLE SPASMS UP TO 10 DAYS 30 tablet 07/18/19 25 Active Semaglutide, 2 MG/DOSE, (Ozempic, 2 MG/DOSE,) 8 MG/3ML solution pen-injector Inject 0.75 mL (2 mg) under the skin 1 (one) time per week. INJECT 2 MG SUBCUTANEOUSLY ONCE A WEEK 3 mL 6 09/14/19 25 Active BD Pen Needle Micro Ultrafine 32G X 6 MM miscIndicatio ns:Type 2 diabetes mellitus without complication, with long-term current use of insulin ([facility]) USE WITH INSULIN DIRECTED 100 each 3 12/26/19 25 Active insulin pen needle (B-D ULTRAFINE III SHORT PEN) 31G X 8 mm miscIndicatio ns:Type 2 diabetes mellitus without complication, with long-term current use of insulin ([facility]) USE DIRECTED ONCE A DAY 100 each 3 06/12/19 25 2024 Discontinued insulin degludec (Tresiba FlexTouch) 100 UNIT/ML injectionIndi cations:Type 2 diabetes mellitus without complication, with long-term current use of insulin ([facility]) INJECT 10 UNITS SUBCUTANEOUSLY AT BEDTIME 4 mL 3 12/15/19 25 2024 Discontinued Active Problems Problem Noted Date Diagnosed Date Muscle pain 01/24/2024 Assessment & Plan (01/24/2024 12:58 PM EDT): Will prescribe cyclobenzaprine as needed, reinforced daily exercises MONICO (generalized anxiety disorder) 09/20/2022 Assessment & Plan (09/20/2022 1:07 PM EDT): Patient reported increased anxiety with medication change, she does not want to start another medication or switch back to paxil, no suicidal/homicidal ideas, told to take half of current meducation for 5 days and then stop. Will renew hydroxyzine, will refer to n. Follow up in 1 month Grief at loss of child 09/20/2022 Assessment & Plan (06/14/2023 2:34 PM EST): Measurement Tools [Check all that apply and include scores] PHQ9: 19 GAD7: 21 PLAN: (check all that apply) Behavioral Health Integration Plan Internal Follow up with [facility] Patient Self Plan Patient to utilize skills provided in intervention , Patient to reach out to HHC team as needed, Patient to engage in OP therapy , and Patient to reach out to [facility] as needed I provided Veronika with information for [facility] and [facility] for her to reach out for OP therapy. Veronika also agrees to referral to [facility] and [facility]. Behavioral Health Diagnoses At this time Veronika meets criteria for Visit Diagnoses: Problem List Items Addressed This Visit Other Severe episode of recurrent major depressive disorder, without psychotic features (CMS/HCC) MONICO (generalized anxiety disorder) Grief at loss of child Assessment & Plan (06/03/2023 9:24 AM EST): Will place referral to , she lost follow up and wants to reestablish care Severe episode of recurrent major depressive disorder, without psychotic features 09/09/2022 Assessment & Plan (09/09/2022 8:52 AM EDT): Patient feels paxil has been mildly effective and is causing weight gain, will switch to milnacipram, told to split paxil in half for 2 days and then start the new med, will follow up in 1 month. Denied suicidal/homicidal ideas, not interested in behavioral therapist Type 2 diabetes mellitus wit hout complication, with long-term current use of insulin 05/24/2022 Assessment & Plan (02/05/2025 9:11 AM EDT): Controlled, will stop insulin, continue ozempic, continue low carb/no sugar diet, exercise as tolerated Assessment & Plan (05/02/2024 11:57 AM EST): She has been having great results with ozempic, lost another 15lbs, will decrease lantus to 10 units with a future plan of stopping it, average is around 110-120, will follow up in 3 months Assessment & Plan (01/24/2024 12:58 PM EDT): Much improved, tolerating ozempic, she has lost over 20lbs, watch for hypoglycemia, will follow up in 4 months Assessment & Plan (12/22/2023 11:09 AM EDT): Improving, will increase ozempic to 2mg, continue lantus dose as is, continue low carb/no sugar diet, follow up in 3 months Pending eye exam, she will book an appointment Patient on ozempic due to cardiovascular, weight and diabetes control benefits, patient has been stable on such medication Assessment & Plan (06/03/2023 9:22 AM EST): Tolerated the 0.5mg dose, will increase it to 1 mg weekly, has lost 8lbs, no episode of hypoglycemia, follow up in 3 months Pending eye exam will mail available optometry office Assessment & Plan (05/12/2023 7:29 PM EST): Controlled, on ozempic and lantus, today A1c <7.0%, encouraged to continue diet and exercise reccomendations, will follow up in 3 months Pending eye exam Assessment & Plan (09/09/2022 8:48 AM EDT): Patient on lantus and trulicity, will switch to ozempic due to weight and less Gi side effect benefit Assessment & Plan (05/24/2022 2:46 PM EST): Controlled, a1c today was 6.5%, encouraged low carb/sugar diet, will refer to physician assistant surgery for weight control, will also refer for eye examination Foot exam done today was unremarkable. Primary hypertension 05/24/2022 Assessment & Plan (02/05/2025 9:11 AM EDT): Controlled, keep low sodium diet and exercise as tolerated, keep blood pressure log target <130/80 Assessment & Plan (05/02/2024 11:55 AM EST): Controlled, will decrease losartan to 50mg, continue bp monitoring, target <130/80, continue low sodium diet and exercise as tolerated, follow up in 3 months Assessment & Plan (01/24/2024 12:57 PM EDT): Controlled, continue low sodium diet, continue bp monitoring, might need medication adjustment in the future due to weight loss Assessment & Plan (08/19/2023 2:37 PM EDT): Not at target, she is maximum dose of losartan, wants to try to address her diet, will follow up in 3 months, target <130/80, she will call me back if contantly above target despite diet adjustments Assessment & Plan (06/20/2023 9:01 PM EST): Patient with cough related to lisinopril, will stop it and start losartan, continue bp monitoring and low salt diet Assessment & Plan (06/03/2023 9:21 AM EST): Patient refers results have remained stable, mostly <130/80, she has been losing weight, which is also going to help her lowering her bp, told to continue daily monitoring, reinforced diet and exercise as tolerated, follow up in 3 months Assessment & Plan (05/12/2023 7:30 PM EST): Blood pressure was elevated today in office, but she refers at home usually <130/80, told to keep bp log for next visit, encouraged low sodium diet and exercise as tolerated Assessment & Plan (09/09/2022 8:47 AM EDT): Not at target, will increase lisinopril to 40mg, reinforced low sodium diet and exercise as tolerated, will follow up in 1 month Assessment & Plan (05/24/2022 2:47 PM EST): At target, reinforced low sodium diet and exercise as tolerated Bilateral carpal tunnel syndrome 05/24/2022 Assessment & Plan (05/24/2022 2:48 PM EST): Will order a EMG phalen maneuver was positive Encounters Date Type Department Care Team Description 02/05/2025 8:30 AM EDT Office Visit [facility] [address] [place] [address] Lai Franks MD Primary hypertension (Primary Dx); Type 2 diabetes mellitus without complication, with long-term current use of insulin ([facility]) 02/05/2025 Travel 02/01/2025 Telephone [facility] [address] [place] [address] Lai Franks MD chart prep 01/29/2025 Patient Outreach [facility] [address] [place] [address] Lai Franks MD Pre-visit Planning (SDOH screening negative and Tobacco screening negative) 12/22/2024 Refill [facility] [address] [place] [address] Aniya Degroot MD Type 2 diabetes mellitus without complication, with long-term current use of insulin ([facility]) 12/14/2024 Refill [facility] [address] [place] [address] Lai Franks MD Type 2 diabetes mellitus without complication, with long-term current use of insulin ([facility]) 12/13/2024 Telephone [facility] [address] [place] [address] Lai Franks MD Nurse Triage from Last 3 Months Social History Tobacco Use Types Packs/Day Years Used Date Smoking Tobacco: Never Passive Smoke Exposure: Never Smokeless Tobacco: Never Tobacco Cessation:Counseling Given: Not Answered Alcohol Use Standard Drinks/Week Comments Yes 1 [...] the past 12 months, has t he [employer], gas, oil or water company threatened to [...] Orientation Straight 03/15/2022 10 :18 AM EDT Last Filed Vital Signs Vital Sign Reading Time Taken Comments Blood Pressure 132/80 02/05/2025 8:55 AM EDT Pulse 88 02/05/2025 8:55 AM EDT Temperature 36.9 C (98.4 F) 02/05/2025 8:55 AM EDT Respiratory Rate 20 02/05/2025 8:55 AM EDT Oxygen Saturation 98% 01/24/2024 8:39 AM EDT Inhaled Oxygen Concentration - - Weight 69.7 kg (153 lb 9.6 oz) 02/05/2025 8:55 A M EDT Height 162.6 cm (5' 4 ) 02/05/2025 8:55 AM EDT Body Mass Index 26.37 02/05/2025 8:55 AM EDT Plan of Treatment Health Maintenance Due Date Last Done Comments Disability Screening 1984 Eye Exam 02/17/1994 Alcohol/Substance Use Screening 1996 Family Planning (PISQ) 02/17/1999 Hepatitis C Screening 02/17/2002 Hepatitis B Vaccines (1 of 3 - 19+ 3-dose series) 02/17/2003 Pneumococcal Vaccine: Pediatrics (0 to 5 Years) and At-Risk Patients (6 to 49) Years (1 of 2 - PCV) 02/17/2003 Dental Oral Exam 11/26/2022 05/28/2022 Dental Prophylaxis 11/26/2022 05/28/2022 Dental X-Ray: Bitewings 05/29/2023 05/28/2022 Mammogram 2024 Diabetes: Urine Protein Screening 08/25/2024 08/26/2023, 03/04/2021 Lipid Panel 08/25/2024 08/26/2023, 05/0 09/2022, 03/04/2021, Additional history exists DTaP/Tdap/Td Vaccines (2 - Td or Tdap) 11/27/2024 11/27/2014 COVID-19 Vaccine ( season) 2025 03/18/2022, 09/16/2021, 04/01/2021, Additional history exists Influenza Vaccine (#1) 2025 , 03/17/2023, 02/05/2020, Additional history exists Depression Screening 05/02/2025 05/02/2024, 05/02/20 Dental X-Ray: Full Mouth 05/29/2025 05/28/2022 Diabetes: Hemoglobin A1C 08/05/2025 025, 01/24/2024, 08/26/2023, Additional history exists SDOH Screening 01/29/2026 01/29/2025 Tobacco Screening 01/29/2026 01/29/2025 Diabetes: Foot Exam 02/05/2026 02/05/2025, 02/05/2025, 02/05/2025, Additional history exists Cervical Cancer Screening 08/04/2026 HPV/Cotest 08/04/2026 08/04/2021 Pap Smear 08/04/2026 08/04/2021 Zoster Vaccines (1 of 2) 02/17/2034 RSV Patients and Patients Aged 60 years or older (1 - 1-dose 75+ series) 02/17/2059 HPV Vaccines Completed 10/22/2009, 06/0 12/2008, 08/21/2008 HIV Screening Completed 04/24/2020 HIB Vaccines Aged Out No longer eligi ble based on patient's age to complete this topic Hepatitis A Vaccines Aged Out No long er eligible based on patient's age to complete this topic IPV Vaccines Aged Out No longer eligi ble based on patient's age to complete this topic Meningococcal B Vaccine Aged Out No l onger eligible based on patient's age to complete this topic Meningococcal Vaccine Aged Out No tanna tila eligible based on patient's age to complete this topic RSV under 20 months Aged Out No longe r eligible based on patient's age to complete this topic Rotavirus Vaccines Aged Out No longer eligible based on patient's age to complete this topic Procedures Procedure Name Priority Date/Time Associated Diagnosis Comments POCT GLYCATED HEMOGLOBIN, TOTAL Routine 02/05/2025 8:57 AM EDT Type 2 diabetes mellitus without complication, with long-term current use of insulin ([facility]) POCT GLUCOSE Routine 02/05/2025 8:56 AM EDT Type 2 diabetes mellitus without complication, with long-term current use of insulin ([facility]) ALBUMIN, RANDOM URINE W/CREATININE Routine 08/26/2023 9:06 AM EDT Type 2 diabetes mellitus without complication, with long-term current use of insulin ([facility]) LIPID PANEL, STANDARD Routine 08/26/2023 9:02 AM EDT Type 2 diabetes mellitus without complication, with long-term current use of insulin ([facility]) PERIODIC ORAL EVALUATION - ESTABLISHED PATIENT Routine 05/28/2022 10:00 AM EST PROPHYLAXIS - ADULT Routine 05/28/2022 8 :00 AM EST INTRAORAL - COMPLETE SERIES OF RADIOGRAPHIC IMAGES Routine 05/28/2022 8:00 AM EST THINPREP IMAGING PAP AND HPV MRNA E6/E7, WITH CT/NG, TRICHOMONAS Routine 08/04/2021 9:10 AM EDT HIV 1/2 ANTIGEN/ANTIBODY, FOURTH GENERATION W/RFL Routine 04/24/2020 2:07 PM EST from Last 3 Months or Most Recently Relevant to Health Maintenance Results * POCT Hgb A1c (02/05/2025 8:57 AM EDT) Hemoglobin A1C 5.4 4.0 - 5.7 % QC Media Lot # [id number] Lot# Expiration Date Blood 02/05/2025 8:57 AM EDT Lai Delaney MD POINT OF CARE TEST ENTER/EDIT ORDERABLES Final Result * POCT Glucose (02/05/2025 8:56 AM EDT) Glucose Blood, POC 104 60 - 200 mg/dL QC Media Lot # [id number] Lot# Expiration Date Blood Capillary blood specimen / Unknown 02/05/2025 8:56 AM EDT Lai Delaney MD POINT OF CARE TEST ENTER/EDIT ORDERABLES Final Result * Albumin, Random Urine W/Creatinine (08/26/2023 9:06 AM EDT) Creatinine, Urine 176.66 mg/dL [facility] Microalbumin Urine 6.0 mg/L [facility] Microalbum Creatinine Ratio Ur 3.3 <30 ug/mg cr [facility] Comment:Albumin/Creatinine R atio Reference Ranges: Normal: < 30 ug/mg creatinine Microalbuminuria: 30 - 300 ug/mg creatinineClinical Albuminuria: > 300 ug/mg creatinine 08/26/2023 9:06 AM EDT 08/26/2023 2:30 PM EDT Lai Delaney MD LAB URINE ORDERABL ES Final Result [facility] [address] [place] [phone] * Lipid Panel, Standard (08/26/2023 9:02 AM EDT) Triglycerides 97 <150 mg/dL [facility] Comment:Desirable Triglyceri de: less than 150 mg/dLBorderline High Triglyceride 150-199 mg/dLHigh Triglyceride: 200-499 mg/dLVery High Triglyceride: greater than or equal to 5OO mg/dL Cholesterol 131 <200 mg/dL [facility] Comment:Desirable Cholestero l: less than 200 mg/dLBorderline High Cholesterol: 200-239 mg/dLHigh Cholesterol: greater than 239 mg/dL LDL Cholesterol Calculated 68 <100 mg/dL [facility] Comment:Desirable LDL: less than 100 mg/dLNear Optimal/Above Optimal LDL: 110- 129 mg/dLBorderline High LDL: 130-159 mg/dLHigh LDL: 160-189 mg/dLVery High LDL: greater than or equal to 190 mg/dL HDL Cholesterol 44 >40 mg/dL [facility] Comment:Desirable HDL: great er than 40 mg/dL Note: This HDL assay may give artificially low results in patients with liver disease. 08/26/2023 9:02 AM EDT 08/26/2023 2:43 PM EDT us Lai Delaney MD LAB BLOOD ORDERABL ES Final Result [facility] [address] [place] [phone] * THINPREP TIS PAP AND HPV mRNA E6/E7, CT/NG, TRICH (08/04/2021 9:10 AM EDT) Chlamydia trachomatis RNA, TMA, Urogenital NOT DETECTED NOT DETECTED [facility] Clinical Information: None given [facility] COMMENT SEE COMMENT [facility] Comment: The analytical performance characteristics of this assay, when used to test SurePath(TM) specimens have been determined by [employer]. The modifications have not been cleared or approved by the FDA. This assay has been validated pursuant to the CLIA regulations and is used for clinical purposes. For additional information, please refer to https://education.[facility]/faq/MWC227 (This link is being provided for information/ educational purposes only.) COMMENT SEE COMMENT [facility] Comment: EXPLANATORY NOTE: The Pap is a screening test for cervical cancer. It is not a diagnostic test and is subject to false negative and false positive results. It is most reliable when a satisfactory sample, regularly obtained, is submitted with relevant clinical findings and history, and when the Pap result is evaluated along with historic and current clinical information. COMMENT: This Pap test has been evaluated with computer assisted technology. [facility] Director Of Counterintelligence: SEE COMMENT [facility] Comment: YP, CT(ASCP) CT screening location: [address] [address] HPV nRNA E6/E7 Not Detected Not Detected [facility] Comment: Methodology: [employer]-Mediated Amplification This assay detects E6/E7 viral messenger RNA (mRNA) from 14 high-risk HPV types (16,18,31,33,35,39,45,51,52,56,58,59,66,68). The analytical performance characteristics of this assay have been determined by [employer]. The modifications have not been cleared or approved by the FDA. This assay has been validated pursuant to the CLIA regulations and is used for clinical purposes. For additional information, please refer to http://Lorena Gaxiola.[facility]/faq/TKC466z1 (This link if provided for information/ educational purposes only.) Interpretation/Re sult: Negative for intraepithelial lesion or malignancy. [facility] LMP: 07/31/21 [facility] Neisseria gonorrhoeae RNA, TMA, Urogenital NOT DETECTED NOT DETECTED [facility] Prev. BX: NONE GIVEN [facility] Prev. PAP: NONE GIVEN [facility] SOURCE: None given [facility] Statement Of Adequacy: SEE COMMENT [facility] Comment: Satisfactory for evaluation. Endocervical/transformation zone component present. Trichomonas vaginalis, QL, TMA, PAP Vial NOT DETECTED NOT DETECTED [facility] Comment: The analytical performance characteristics of this assay have been determined by [employer]. The modifications have not been cleared or approved by the FDA. This assay has been validated pursuant to the CLIA regulations and is used for clinical purposes. For additional information, please refer to http://education.[facility]/ faq/Trichomonastma (This link is being provided for information/ educational purposes only.) 08/04/2021 9:10 AM EDT Nancy DOAN LAB PATHOLOGY ORDERABLES Final Result Performing Organization Address [facility] Co de Phone Number [facility] [address] * HIV 1/2 ANTIGEN/ANTIBODY,FOURTH GENERATION W/RFL (04/24/2020 2:07 PM EST) HIV-1/2 ANTIGEN AND ANTIBODIES, 4TH GENERATION W/ REFLEX NON-REACT ENEIDA NON-REACT ENEIDA [facility] Comment: HIV-1 antigen and HIV-1/HIV-2 antibodies were not detected. There is no laboratory evidence of HIV infection. PLEASE NOTE: This information has been disclosed to you from records whose confidentiality may be protected by state law. If your state requires such protection, then the state law prohibits you from making any further disclosure of the information without the specific written consent of the person to whom it pertains, or as otherwise permitted by law. A general authorization for the release of medical or other information is NOT sufficient for this purpose. For additional information please refer to http://education.[employer]/faq/PES902 (This link is being provided for informational/ educational purposes only.) The performance of this assay has not been clinically validated in patients less than 2 years old. 04/24/2020 2:07 PM EST Lai Delaney MD LAB BLOOD ORDERABL ES Final Result Performing Organization Address [facility] de Phone Number [facility] [address] from Last 3 Months or Most Recently Relevant to Health Maintenance Insurance [facility] STANDARD MEDICARE [facility] ADULT Care Teams Recreation Coordinator Relationship Specialty Start Date End Date Lai Franks MD [address] [place] [address] [phone] PCP - General Internal Medicine 10/10/19
--- OUTSIDE RECORDS SUMMARY | 2025-02-05 10:52 | XMS_ITS | Encounter Summary ---
Author Organization [employer] Address [address] [facility] [address] [place] [address] Care Team Providers Care 7Th Grade Teacher Name Role Phone Lai Franks MD Primary Care Prov ider Reason for Visit * Reason Onset Date Comments Med Refill 12/30/2023 Encounter Details Date Type Department Care Team (Late st Contact Info) Description 12/30/2023 Telephone [facility] [address] [place] [address] Lai Franks MD [address] [place] [address] Med Refill Social History Tobacco Use Types Packs/Day Years Used Date Smoking Tobacco: Never Passive Smoke Exposure: Never Smokeless Tobacco: Never Alcohol Use Standard Drinks/Week Comments Yes 1 (1 standard drink = 0.6 oz pur e alcohol) Depression Answer Date Recorded Patient Health Questionnaire-9 Score 06/14/2023 Patient Health Questionnaire-9 Score 06/14/2023 Last PHQ-9: Questionnaire Data Not on file 0 06/14/2023 Housing Stability Answer Date Recorded What is your housing situation today? I have danika suzanne 03/01/[address] you li [...] encounter Miscellaneous Notes * Telephone Encounter - Liliana An - 12/30/2023 10:13 AM EDT TC from pt requesting medication refill. Medications needing refill : FREESTYLE LITE test strip To be sent to: [facility]/pharmacy #[id number] [place], [place] - [address] [place] [address] documented in this encounter Plan of Treatment Not on file documented as of this encounter Visit Diagnoses Not on filedocumented in this encounter Additional Health Concerns Assessment Noted Time PHQ-9 Depression Total Score: 19 024 2:06 PM EST documented as of this encounter Care Teams 7Th Grade Teacher Relationship Specialty Start Date End Date Lai Franks MD [address] [place] [phone] PCP - General Internal Medicine 10/10/19 documented as of this encounter
--- OUTSIDE RECORDS SUMMARY | 2025-02-05 10:52 | XMS_ITS | Encounter Summary ---
Author Organization [employer] Address [address] [facility] 7t [place] [address] Care Team Providers Care Cafeteria Cook Name Role Phone Lai Franks MD Primary Care Prov ider Encounter Details Date Type Department Care Team (Latest Contact Info) Description 02/05/2025 Travel Social History Tobacco Use Types Packs/Day Years [...] is your housing situation today? I have danikavinicio palacios 01/29/[address] you [...] documented as of this encounter Care Teams Cafeteria Cook Relationship Specialty Start Date End Date Lai Franks MD [address] [place] [phone] PCP - General Internal Medicine 10/10/19 documented as of this encounter
--- OUTSIDE RECORDS SUMMARY | 2025-02-05 10:52 | XMS_ITS | Encounter Summary ---
Author Organization [employer] Address [address] [facility] 7t [place] [address] Care Team Providers Care Rn Correctional Name Role Phone Lai Franks MD Primary Care Prov ider Reason for Visit * Reason Comments Med Refill Encounter Details Date Type Department Care Team ([facility] st Contact Info) Description 10/22/2023 Refill [facility] MED & PEDS [address] [place], [place] [phone] Lai Franks MD [address] [place] [address] Type 2 diabetes mellitus without complication, with long-term current use of insulin ([facility]) Social History Tobacco Use Types [...] documented as of this encounter Visit Diagnoses Diagnosis Type 2 diabetes mellitus without complication, with long-term current use of insulin ([facility]) documented in this encounter Additional Health Concerns Assessment Noted Time PHQ-9 Depression Total Score: 19 024 2:06 PM EST documented as of this encounter Care Teams Rn Correctional Relationship Specialty Start Date End Date Lai Franks MD [address] [place] [id number] PCP - General Internal Medicine 10/10/19 documented as of this encounter
--- OUTSIDE RECORDS SUMMARY | 2025-02-05 10:53 | XMS_ITS | Encounter Summary ---
Author Organization [employer] Address [address] [facility] 7t [place] [address] Care Team Providers Care Electrician Second Name Role Phone Lai Franks MD Primary Care Prov ider Reason for Visit * Reason Comments Med Change Request Encounter Details Date Type Department Care Team ([facility] Contact Info) Description 10/21/2023 Refill [facility] CHC MED & PEDS [address] [place], [place] [phone] Lai Franks MD [address] [place] [address] Social History Tobacco Use Types Packs/Day Years [...] documented as of this encounter Care Teams Electrician Second Relationship Specialty Start Date End Date Lai Franks MD [address] [place] [id number] PCP - General Internal Medicine 10/10/19 documented as of this encounter
--- OUTSIDE RECORDS SUMMARY | 2025-02-05 10:53 | XMS_ITS | Encounter Summary ---
Author Organization [employer] Address [address] [facility] 7t [place] [address] Care Team Providers Care Appellate Law Clerk Name Role Phone Lai Franks MD Primary Care Prov ider Encounter Details Date Type Department Care Team ([facility] st Contact Info) Description 09/20/2022 Orders Only [facility] CHC MED & PEDS [address] [place], [place] [phone] Lai Franks MD [address] [place], [place] [phone] Social History Tobacco Use Types Packs/Day Years Used Date Smoking Tobacco: Never Passive Smoke Exposure: Never Smokeless Tobacco: Never Alcohol Use Standard Drinks/Week Comments Yes 1 (1 standard drink = 0.6 oz pur e alcohol) Depression Answer Date Recorded Patient Health Questionnaire-9 Score 9 09/08/2022 Depression Answer Date Recorded Patient Health Questionnaire-2 Score 6 09/08/2022 Comments Unknown Sex and Gender Information Value Date Recorded Sex Assigned at Female 03/15/2022 10:18 AM EDT Legal Sex Female 10:18 AM EDT Gender Identity Female 03/15/2022 10:18 AM EDT Sexual Orientation Straight 03/15/2022 10 :18 AM EDT COVID-19 Exposure Response Date Recorded In the last 10 days, have yo u been in contact with someone who was confirmed or suspected to have Coronavirus/COVID-19? No / Unsure 09/20/2022 11:01 AM EDT documented as of this encounter Functional Status * Over the last 2 weeks, how often have you been bothered by any of the following problems? Question Answer Date of Assessment Author Feeling nervous, anxious, or on edge 3 12/2022 1:17 PM EDT Timothy Delaney Not being able to stop or co ntrol worrying 3 09/20/2022 1:17 PM EDT Timothy Delaney Worrying too much about diff erent things 3 09/20/2022 1:17 PM EDT Timothy Delaney Trouble relaxing 3 09/20/2022 1:17 PM EDT Timothy Nelson Being so restless that it is hard to sit still 3 09/20/2022 1:17 PM EDT Timothy Delaney Becoming easily annoyed or irritable 3 12/2022 1:17 PM EDT Timothy Delaney Feeling afraid as if somethi ng awful might happen 3 09/20/2022 1:17 PM EDT Timothy Delaney MONICO-7 Total Score 21 09/20/2022 1:17 PM EDT Timothy Delaney documented as of this encounter Plan of Treatment Not on file documented as of this encounter Visit Diagnoses Not on filedocumented in this encounter Additional Health Concerns Assessment Noted Time PHQ-9 Depression Total Score: 9 09/09/19 23 2:42 PM EDT documented as of this encounter Care Teams Appellate Law Clerk Relationship Specialty Start Date End Date Lai Franks MD [address] [place] [phone] PCP - General Internal Medicine 10/10/19 documented as of this encounter
--- OUTSIDE RECORDS SUMMARY | 2025-02-05 10:53 | XMS_ITS | Encounter Summary ---
Author Organization [employer] Address [address] [facility] 7t [place] [address] Care Team Providers Care Heel Shaper Name Role Phone Lai Franks MD Primary Care Prov ider Reason for Visit * Reason Comments Med Change Request Encounter Details Date Type Department Care Team ([facility] Contact Info) Description 01/24/2024 Refill [facility] CHC MED & PEDS [address] [place], [place] [phone] Lai Franks MD [address] [place] [address] Type 2 diabetes mellitus without complication, with long-term current use of insulin ([facility]) Social History Tobacco Use Types Packs/Day Years [...] complication, with long-term current use of insulin ([facility]) documented in this encounter Additional Health Concerns Assessment Noted Time PHQ-9 Depression Total Score: 19 024 2:06 PM EST documented as of this encounter Care Teams Heel Shaper Relationship Specialty Start Date End Date Lai Franks MD [address] [place] [phone] PCP - General Internal Medicine 10/10/19 documented as of this encounter
[2025-02-05 14:34] LABS: MANUAL DIFF FLAG NO
[2025-02-05 14:38] LABS: Hematocrit 37.2 % (37.0-47.0); Hemoglobin 12.3 g/dl (12.0-16.0); Imm Gran Abs Auto 0.02 X10*3/uL (0.00-0.03); Imm Gran Pct Auto 0.3 % (0.0-0.4); Lymphocytes Absolute Auto 2.5 X10*3/uL (1.2-4.9); Mean Corpuscular HGB Conc 33.1 g/dl (31.0-35.0); Mean Corpuscular Hemoglobin 29.6 pg (27.0-33.0); Mean Corpuscular Volume 89.4 fL (80.0-98.0); NRBC Abs Auto 0.000 X10*3/uL (0.0-0.012); NRBC Pct Auto 0.0 /100WBC (0.0-0.2); Platelet Count 455 X10*3/uL (160-400); Red Blood Count 4.16 X10*6/uL (4.20-5.50); White Blood Count 8.0 X10*3/uL (4.8-10.8)
[2025-02-05 14:48] LABS: Alanine Aminotransferase 27 U/L (0-31); Albumin Level 4.4 g/dL (3.5-5.0); Alkaline Phosphatase 78 U/L (39-117); Anion Gap 11 (12-20); Aspartate Amino Transferase 27 U/L (5-31); Blood Urea Nitrogen 11 mg/dL (9-16); Calcium 9.4 mg/dL (8.4-10.2); Carbon Dioxide 28 mmol/L (22-29); Chloride 107 mmol/L (96-108); Cholesterol 128 mg/dL (<200); Estimated Glomerular Filt Rate > 60; HDL Cholesterol 45 mg/dL (>40); Potassium 4.4 mmol/L (3.3-5.1); Sodium 142 mmol/L (135-145); Total Protein 7.1 g/dL (6.5-8.0); Triglycerides 76 mg/dL (<150)
[2025-02-05 15:09] LABS: Microalbum/Creatinine Ratio Ur 3.2 ug/mg cr (<30)
[2025-02-06 09:00] LABS: ~HepC Num1 0.09 S/CO (0.00-0.79); ~Hepatitis C Antibody Nonreactive (Nonreactive)
== END 2025-02-05 09:16 | disposition home or self-care (01) ==
LOC: HO.CHCLDS 09:15
PROVIDERS: Visit Provider Internal Medicine
DX: Z11.59 Encounter for screening for other viral diseases (principal); E11.9 Type 2 diabetes mellitus without complications; Z79.4 Long term (current) use of insulin
CPT/HCPCS: 36415; 80053; 80061; 82043; 82570; 85025; 86803